=== PATIENT | male | born 2000 | race African-American/Black ===

== ENCOUNTER 2022-08-21 03:59 | Emergency (ER) | payer SELFPAY ==
[~2022-08-21] VITALS: Ht 180.3 cm; Wt 75.0 kg
[2022-08-21 05:24] VITALS: BP 138/88
== END 2022-08-21 05:54 | disposition home or self-care (01) ==
LOC: ER 04:05
DX: S93.402A Sprain of unspecified ligament of left ankle, initial encounter (principal); X50.1XXA Overexertion from prolonged static or awkward postures, initial encounter; Y93.89 Activity, other specified; Y92.89 Other specified places as the place of occurrence of the external cause; Y99.8 Other external cause status
CPT/HCPCS: 73610; 73630

== ENCOUNTER 2025-07-28 06:34 | Emergency (ER) | payer MEDICAID ==
--- NOTE | 2025-07-28 06:41 | ED.PDOC ---
HPI Comments 24-year-old male presents here with chest discomfort and palpitations. Patient states around 5:00 a.m. this morning he was watching TV and he began to have sudden onset of palpitations and some chest discomfort. No history of previous event in the past. 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 and had just gotten home and was watching TV. He noticed this starting to occur. He did drink a proximally 600 mg caffeine from energy drinks last night which is more than is normal. He states while he was watching TV suddenly these symptoms began. He called his mother, they watched him at home for proximally 40 minutes however once they continued follow up patient came to the ER. He states he is feeling much more calm than previous. Chest discomfort and palpitations have significantly decreased. Denies any shortness of breath prior to today. Denies any leg swelling. Has not been sick recently no recent cough cold runny nose. No family history of significant cardiac disease. Chief Complaint: Chest Pain Time Seen by MD: 06:41 Reviewed Notes: Medications, Allergies Allergies: Coded Allergies: NO KNOWN ALLERGIES (Unverified , 08/21/22) Information Source: Patient Severity: Moderate Duration: Since onset Location: Chest (L) Radiation: No Radiation Quality: Pressure, Tightness Onset: At Rest Cardiac Risk Factors: Smoker PE Risk Factors: None History of: None Modifying Factors: Nothing Associated Signs and Symptoms: Palpitations Past Medical History PAST MEDICAL HISTORY: Denies Surgical History: Unknown Family History Family History: Reviewed,noncontributory to illness Social History Smoker: Other Alcohol: Occasionally Drugs: Marijuana Lives In: Home Constitutional: denies: chills, diaphoresis, fatigue, fever, malaise, sweats, weakness, others EENTM: denies: blurred vision, double vision, ear bleeding, ear discharge, ear drainage, ear pain, ear ringing, eye pain, eye redness, hearing loss, mouth pain, mouth swelling, nasal discharge, nose bleeding, nose congestion, nose pain, photophobia, tearing, throat pain, throat swelling, voice changes, others Respiratory: denies: cough, hemoptysis, orthopnea, SOB at rest, shortness of breath, SOB with excertion, stridor, wheezing, others Cardiovascular: reports: chest pain, palpitations; denies: dizzy spells, diaphoresis, Dyspnea on exertion, edema, irregular heart beat, left arm pain, lightheadedness, PND, syncope, others Gastrointestinal: denies: abdomen distended, abdominal pain, blood streaked bowels, constipated, diarrhea, dysphagia, difficulty swallowing, hematemesis, melena, nausea, poor appetite, poor fluid intake, rectal bleeding, rectal pain, vomiting, others Genitourinary: denies: burning, dysuria, flank pain, frequency, hematuria, incontinence, penile discharge, penile sore, pain, testicle pain, testicle swell ing, urgency, others Neurological: denies: dizziness, fainting, headache, left sided numbness, left sided weakness, numbness, paresthesia, pre-existing deficit, right sided numbness, right sided weakness, seizure, speech problems, tingling, tremors, weakness, others Musculoskeletal: denies: back pain, gout, joint pain, joint swelling, muscle pain, muscle stiffness, neck pain, others Integumetry: denies: bruises, change in color, change in hair/nails, dryness, laceration, lesions, lumps, rash, wounds, others Allergic/Immunocompromised: denies: Difficulty Healing, Frequent Infections, Hives, Itching, others Hematologic/Lymphatic: denies: anemia, blood clots, easy bleeding, easy bruising, swollen glands, others Endocrine: denies: excessive hunger, excessive sweating, excessive thirst, excessive urination, flushing, intolerance to cold, intolerance to heat, unexplained weight gain, unexplained weight loss, others Psychiatric: denies: anxiety, bipolar disorder, depression, hopeless, panic disorder, schizophrenia, sleepless, suicidal, others All Other Systems: Reviewed and Negative Physical Exam General Appearance: No Apparent Distress, Normal HEENT: Normal ENT Inspection, Pharynx Normal, TMs Normal Neck: Full Range of Motion, Non-Tender, Normal, Normal Inspection Respiratory: Chest Non-Tender, Lungs Clear, No Accessory Muscle Use, No Respiratory Distress, Normal Breath Sounds Cardiovascular: Tachycardia Breast Exam: Deferred Gastrointestinal: No Organomegaly, Non Tender, No Pulsatile Mass, Normal Bowel Sounds, Soft Genitalia: Deferred Pelvic: Deferred Rectal: Deferred Extremities: No calf tenderness, Normal capillary refill, Normal inspection, Normal range of motion, Non-tender, No pedal edema Musculoskeletal : Apperance: Normal Neurologic: Alert, desktop support specialist II-XII nml as Tested, No Motor Deficits, Normal Affect, Normal Mood, No Sensory Deficits Cerebellar Function: Normal Reflexes: Normal Skin: Dry, Normal Color, Warm Lymphatic: No Adenopathy EKG EKG #1: Comments Sinus rhythm rate of 94, no significant ST changes EKG #2: Comments Sinus rhythm rate of 68, no significant ST changes. Was a procedure done? Was a procedure done?: No CP Differential Dx Differential Diagnosis: Angina, Anxiety / Panic Attack, Electrolyte Disorder, Hyperthyroidism, Hyperventilation, Pulmonary Embolus, Sinus Tachycardia Differential Diagnosis: Other Differential Diagnosis: Angina, Pericarditis, Pneumonia, Pneumothorax, Pulmonary Embolus X-Ray, Labs, Meds, VS Vital Signs Date Time Temp Pulse Resp B/P (MAP) Pulse Ox O2 Delivery O2 Flow Rate FiO2 07/28/25 07:23 98.8 94 16 146/72 (96) 94 98.8 07/28/25 07:23 94 16 94 Room Air 07/28/25 06:45 94 07/28/25 06:35 117 18 158/104 95 Lab Test 07/28/25 08:06 07/28/25 07:00 Range/Units Troponin I High Sensitivity Pending 3 L </=54 ng/L White Blood Count 9.9 4.4-10.8 10^3/uL Red Blood Count 5.27 4.5-5.90 10^6/uL Hemoglobin 15.5 13.5-17.5 g/dL Hematocrit 45.1 41.0-53.0 % Mean Corpuscular Volume 85.7 80.0-100.0 fL Mean Corpuscular Hemoglobin 29.4 28.0-32.0 pg Mean Corpuscular Hemoglobin Concent 34.3 32.0-36.0 g/dL Red Cell Distribution Width 13.3 11.8-14.3 % Platelet Count 248 140-450 10^3/uL Mean Platelet Volume 7.7 6.9-10.8 fL Neutrophils (%) (Auto) 68.2 37.0-80.0 % Lymphocytes (%) (Auto) 23.0 10.0-50.0 % Monocytes (%) (Auto) 7.2 0.0-12.0 % Eosinophils (%) (Auto) 1.2 0.0-7.0 % Basophils (%) (Auto) 0.4 0.0-2.0 % Neutrophils # (Auto) 6.8 1.6-8.6 10 ^3/uL Lymphocytes # (Auto) 2.3 0.4-5.4 10 ^3/uL Monocytes # (Auto) 0.7 0-1.3 10 ^3/uL Eosinophils # (Auto) 0.1 0-0.8 10 ^3/uL Basophils # (Auto) 0 0-0.2 10 ^3/uL Nucleated Red Blood Cells 0.1 % D-Dimer, Quantitative < 0.19 0.0-0.49 mg/L FEU Sodium Level 140 136-145 mmol/L Potassium Level 3.1 L 3.5-5.1 mmol/L Chloride Level 102 98-107 mmol/L Carbon Dioxide Level 27 20-31 mmol/L Anion Gap 11 5-15 Blood Urea Nitrogen 11 9-23 mg/dL Creatinine 1.19 0.700-1.30 mg/dL Glomerular Filtration Rate Calc 87 >90 mL/min BUN/Creatinine Ratio 9.2 L 10.0-20.0 Serum Glucose 121 H 74-106 mg/dL Calcium Level 9.8 8.7-10.4 mg/dL Current Medications Medications (Trade) Dose Ordered Sig/Amilcar Route Start Time Stop Time Status Last Admin Sodium Chloride 1,000 ml @ 1,000 mls/hr Q1H ONCE IV 07/28/25 07:00 07/28/25 07:59 DC 07/28/25 07:33 [place] [address] Ph: [phone] DIAGNOSTIC IMAGING Diagnostic Imaging Report : [id number] Signed PATIENT: ALEXUS SANTIAGO ACCT: [id number] UNIT: [id number] : 2000 LOC: ER ROOM / BED: / AGE / SEX: 24 / M ADM STATUS: REG ER SERVICE [id number] ORDERING PHYSICIAN: ARRON IRVIN MD PROCEDURE(s): CXR2 - CHEST TWO VIEWS ROUTINE REASON: rule out pneumothorax pneumonia ORDER NUMBER(s): [id number], ACCESSION NUMBER(s): [id number] CHEST RADIOGRAPH Indication: rule out pneumothorax pneumonia Technique: Frontal and lateral view of the chest was obtained Comparison: None FINDINGS: Lines and Tubes: None Lungs: Clear Pleura: No effusion. No pneumothorax. Cardiomediastinal contours: Unremarkable Bones: Unremarkable IMPRESSION: No evidence of acute disease. ATED BY: STEPHEN DOMINGO MD DICTATED DATE/TIME: 07/28/25734 SIGNED BY: STEPHEN DOMINGO MD SIGNED DATE/TIME: 07/28/25734 24-year-old male presents here with palpitations and chest discomfort. 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 He states he monitored at home for proximally 40 minutes however after this continued he came to the ER. He states he did have 600 mg of caffeine last night from energy drinks which is significantly more that is normal. No history of similar palpitations or discomfort in the past. At this time my differential includes caffeine induced stimulant tachycardia, electrolyte disturbance, dehydration, pericarditis, PE, pulmonary embolus. He has no leg swelling on his legs. He was initially found to be tachycardic at 117 He has does state that he feels more calm being in the ER in his more recent pulses 94. At this time however I have ordered a CBC BMP, troponin, EKG, D-dimer and a L of normal saline. I have strongly advised him that he should cut down on his caffeine uses that is the likely cause today. Patient agreeable. CBC BMP troponin have returned. No abnormalities except for a low potassium of 3.1 which I have repleted with potassium. At this time patient has been given his 1 L of normal saline. Clinically he is feeling much better. Heart rate is now 68. First set troponin is negative. Chest x-ray with no pathology. At this time I will be discharging the patient home. Advised him to follow up with the PCP in 2-3 days and return to the ER if symptoms worsen or persist. Patient agreeable. Also strongly advised him to not drink so much caffeine. Time of 1ST Reevaluation: 07:22 Reevaluation 1ST: Improved Patient Education/Counseling: Diagnosis, Treatment Family Education/Counseling: No Family Present SEPSIS Sepsis Screen Physician Orders Electrocardigram (07/28/25 06:45) Troponin-I Hs (07/28/25 07:45) Troponin-I Hs (07/28/25 09:45) Electrocardigram (07/28/25 07:45) Electrocardigram (07/28/25 09:45) Chest Two Views Routine (07/28/25 06:56) Vital Signs Date Time Temp Pulse Resp B/P (MAP) Pulse Ox O2 Delivery O2 Flow Rate FiO2 07/28/25 07:23 98.8 94 16 146/72 (96) 94 98.8 07/28/25 07:23 94 16 94 Room Air 07/28/25 06:45 94 07/28/25 06:35 117 18 158/104 95 Laboratory Tests Test 07/28/25 07:00 White Blood Count 9.9 10^3/uL (4.4-10.8) Medications Medications Dose Ordered Sig/Amilcar Route Start Time Stop Time Status Last Admin Dose Admin Sodium Chloride 1,000 ml @ 1,000 mls/hr Q1H ONCE IV 07/28/25 07:00 07/28/25 07:59 DC 07/28/25 07:33 Departure 1 Departure Time of Disposition: 08:32 Impression: Primary Impression: Palpitations Additional Impressions: Caffeine abuse Hypokalemia Disposition: 01 HOME / SELF CARE / HOMELESS Condition: Stable Additional Instructions: Follow up with the primary care physician in 2-3 days. Return to the ER if symptoms worsen or persist. I strongly advise you to decrease your caffeine usage. Critical Care Note Critical Care Time?: No Stability Stability form required: No Heart Score Heart Score: Heart Score Response (Comments) Value History Slightly Suspicious 0 EKG Repolarization Disturb 1 Age <45 0 Risk Factors No known risk factors 0 Troponin Normal limit 0 Total 1 I personally scribed for ARRON IRVIN MD ([email or web address]) on 07/28/25 at 06:41. Electronically submitted by Shanita Coleman ([email or web address]). I personally scribed for ARRON IRVIN MD ([email or web address]) on 07/28/25 at 07:25. Electronically submitted by Shanita Coleman ([email or web address]). I personally scribed for ARRON IRVIN MD ([email or web address]) on 07/28/25 at 07:38. Electronically submitted by Shanita Coleman ([email or web address]). I personally scribed for ARRON IRVIN MD ([email or web address]) on 07/28/25 at 08:09. Electronically submitted by Shanita Coleman ([email or web address]). ARRON IRVIN MD Jul 28, 2025 06:41
[2025-07-28 07:27] LABS: Chloride 102 mmol/L (98-107); Sodium 140 mmol/L (136-145)
[2025-07-28 07:28] LABS: Anion Gap 11 (5-15); Calcium 9.8 mg/dL (8.7-10.4); Carbon Dioxide 27 mmol/L (20-31); Potassium 3.1 mmol/L (3.5-5.1)
[2025-07-28 07:33] LABS: BUN/Creatinine Ratio 9.2 (10.0-20.0); Blood Urea Nitrogen 11 mg/dL (9-23)
[2025-07-28] MEDS: SODIUM CHLORIDE 0.9% 1,000 ML IV ONE (07:33)
--- NOTE | 2025-07-28 07:37 | DVH ---
CHEST RADIOGRAPH Indication: rule out pneumothorax pneumonia Technique: Frontal and lateral view of the chest was obtained Comparison: None FINDINGS: Lines and Tubes: None Lungs: Clear Pleura: No effusion. No pneumothorax. Cardiomediastinal contours: Unremarkable Bones: Unremarkable IMPRESSION: No evidence of acute disease.
[2025-07-28 07:38] LABS: Glucose 121 mg/dL (74-106)
[2025-07-28 07:52] LABS: Hematocrit 45.1 % (41.0-53.0); Hemoglobin 15.5 g/dL (13.5-17.5); Mean Corpuscular Hemoglobin 29.4 pg (28.0-32.0); Mean Corpuscular Volume 85.7 fL (80.0-100.0); Nucleated Red Blood Cells % 0.1 %
[2025-07-28] MEDS: POTASSIUM CHL 20 Meq TABLET PO ONE (08:36)
[2025-07-28 09:18] VITALS: BP 125/84; PULSE 71; RESP 16; TEMP 98.2; O2SAT 95
--- NOTE | 2025-07-31 12:13 | ECG ---
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
--- NOTE | 2025-07-31 12:20 | ECG ---
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
--- NOTE | 2025-08-01 16:08 | ECG ---
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
== END 2025-07-28 09:22 | disposition home or self-care (01) ==
LOC: ER 06:34
DX: R00.2 Palpitations (principal); F15.10 Other stimulant abuse, uncomplicated; E87.6 Hypokalemia; F17.200 Nicotine dependence, unspecified, uncomplicated; Z79.899 Other long term (current) drug therapy
CPT/HCPCS: 36415; 71046; 80048; 84484; 85025; 85379; 93005; 96360; 96361; 99285; J7030